=== PATIENT | female | born 1960 | race Caucasian/White ===

== ENCOUNTER 2020-05-05 10:58 | Emergency (ER) | payer MEDICAID, OTHER ==
[~2020-05-05] VITALS: Ht 157.5 cm; Wt 87.1 kg
[~2020-05-05 10:58] MED LIST: ACET-5636; ATEN25TA2; LEVO0.0211
[2020-05-05 11:01] VITALS: BP 136/76
--- NOTE | 2020-05-05 11:09 | NUR ---
Patient ambulated with steady gait to bed 5
[2020-05-05] MEDS ORDERED: KETOROLAC 60 MG/2 ML VIAL IM ONE (11:10)
--- NOTE | 2020-05-05 11:24 | NUR ---
59 YEAR OLD FEMALE COMPLAINS OF LEFT THIGH PAIN X 7 MONTHS. PT STATES THAT SHE HAS A SARCOMA THAT WILL HAVE PROCEDURE DONE ON IT SOON. PT AOX4, BREATHING EVEN AND UNLABORED, SKIN WARM AND DRY. BED IN LOWEST POSITION, LOCKED, BED RAIL UPX1. PMH - DM2, HTN, HYSTERECTOMY, 1 KIDNEY, SARCOMA ALLERGIES - NKA
[2020-05-05] MEDS ORDERED: MORPHINE SULFATE 4 MG/ML SYR IM ONE (12:00)
[2020-05-05 12:35] VITALS: BP 136/76
--- NOTE | 2020-05-05 12:35 | NUR ---
Patient discharged with v/s stable. Written and verbal after care instructions given and explained. Patient verbalized understanding. Ambulatory with steady gait. Patient taken home by caregiver. All questions addressed prior to discharge. Advised to follow up with PMD.
== END 2020-05-05 12:35 | disposition home or self-care (01) ==
LOC: MED 10:58
DX: C49.20 Malignant neoplasm of connective and soft tissue of unspecified lower limb, including hip (principal); I10 Essential (primary) hypertension; E07.9 Disorder of thyroid, unspecified; E11.9 Type 2 diabetes mellitus without complications; Z79.899 Other long term (current) drug therapy; Z87.448 Personal history of other diseases of urinary system; Z88.2 Allergy status to sulfonamides
CPT/HCPCS: 96372; 99283; J1885; J2270